=== PATIENT | female | born 1945 | race Caucasian/White ===

== ENCOUNTER 2020-07-20 10:57 | Emergency (ER) | payer MEDICARE, OTHER ==
[2020-07-20] MEDS ORDERED: NORMAL SALINE 1000 ML 1,000 ML IV ONE (11:39)
--- NOTE | 2020-07-20 11:40 | ER Document Report ---
ED Medical Screen (RME) - General Chief Complaint: Blood Pressure Problem Stated Complaint: BLOOD PRESSURE PROBLEMS Time Seen by Provider: 07/20/20 11:34 Primary Care Provider: ALEXIS YEUNG MD [Primary Care Provider] - Follow up as needed Notes: HPI: 75-year-old female presenting for low blood pressure and dizziness today. She states that she has been lightheaded for the last several days. Patient normally follows a [facility]. Patient had diarrhea in early mid June and her whole family was diagnosed Covid positive including herself. She still has some diarrhea no abdominal pain no fever. Has developed a slight cough no shortness of breath no chest pain. Patient is on 2 different blood pressure medications and has continued to take her medications at home despite being lightheaded she has been monitoring her pressures and they have been very low. She did take her blood pressure medications this morning. PHYSICAL EXAMINATION: Patient appears normotensive and is not significantly tachycardic at this time. Lung sounds are clear to auscultation I have greeted and performed a rapid initial assessment of this patient. A comprehensive ED assessment and evaluation of the patient, analysis of test results and completion of medical decision making process will be conducted by an additional ED providers. TRAVEL OUTSIDE OF THE [place] IN LAST 30 DAYS: No - Related Data Allergies/Adverse Reactions: Uhxuwcr-Sge-Fcu Reductase Inhibitor Adverse Reaction (Mild, Verified 07/20/20 11:33) MUSCLE CRAMP Past Medical History - Social History Chew tobacco use (# tins/day): No Frequency of alcohol use: None Drug Abuse: None - Past Medical History Cardiac Medical History: Reports: Hx Hypertension Denies: Hx Heart Attack Pulmonary Medical History: Denies: Hx Asthma Neurological Medical History: Denies: Hx Cerebrovascular Accident, Hx Seizures - ? MAYBE A TIA-NOT DIAGNOSED GI Medical History: Denies: Hx Hepatitis, Hx Hiatal Hernia, Hx Ulcer Infectious Medical History: Denies: Hx Hepatitis Past Surgical History: Denies: Hx Mastectomy, Hx Open Heart Surgery, Hx Pacemaker Physical Exam - Vital signs Vitals: Temp Pulse Resp BP Pulse Ox 97.9 F 83 15 126/61 H 96 07/20/20 11:05 07/20/20 11:05 07/20/20 11:05 07/20/20 11:05 07/20/20 11:05 Course - Vital Signs Vital signs: Temp Pulse Resp BP Pulse Ox 97.9 F 83 15 126/61 H 96 07/20/20 11:05 07/20/20 11:05 07/20/20 11:05 07/20/20 11:05 07/20/20 11:05 Doctor's Discharge - Discharge Referrals: ALEXIS YEUNG MD [Primary Care Provider] - Follow up as needed
[2020-07-20 12:46] LABS: ABSOLUTE BASOPHILS # (AUTO) 0.1 10^3/uL (0.0-0.2); ABSOLUTE EOSINOPHILS # (AUTO) 0.1 10^3/uL (0.0-0.6); ABSOLUTE LYMPHOCYTES (AUTO) 1.2 10^3/uL (0.5-4.7); ABSOLUTE MONOCYTES (AUTO) 0.7 10^3/uL (0.1-1.4); ABSOLUTE NEUT (AUTO) 5.6 10^3/uL (1.7-8.2); BASOPHILS % (AUTO) 0.8 % (0-2); EOSINOPHILS % (AUTO) 1.3 % (0-6); HEMOGLOBIN 11.5 g/dL (12.0-15.5); LYMPHOCYTES % (AUTO) 15.2 % (13-45); MEAN CORPUSCULAR HEMOGLOBIN 27.3 pg (27.0-33.4); MEAN CORPUSCULAR HGB CONC 32.9 g/dL (32.0-36.0); MEAN CORPUSCULAR VOLUME 83 fl (80-97); MONOCYTES % (AUTO) 9.1 % (3-13); PLATELET COUNT 263 10^3/uL (150-450); RED BLOOD COUNT 4.22 10^6/uL (3.72-5.28); RED CELL DISTRIBUTION WIDTH 14.7 % (11.5-14.0); SEGMENTED NEUTROPHILS % (AUTO) 73.6 % (42-78); TOTAL CELLS COUNTED % (AUTO) 100 %; WHITE BLOOD COUNT 7.6 10^3/uL (4.0-10.5)
--- NOTE | 2020-07-20 12:48 | RADIOLOGY REPORT (SQ) ---
EXAM DESCRIPTION: CHEST SINGLE VIEW IMAGES COMPLETED DATE/TIME: 07/20/2020 12:21 pm REASON FOR STUDY: cough covid + 07/09 COMPARISON: None. EXAM PARAMETERS: NUMBER OF VIEWS: One view. TECHNIQUE: Single frontal radiographic view of the chest acquired. RADIATION DOSE: NA LIMITATIONS: None. FINDINGS: LUNGS AND PLEURA: No opacities, masses or pneumothorax. No pleural effusion. MEDIASTINUM AND HILAR STRUCTURES: No masses. Contour normal. HEART AND VASCULAR STRUCTURES: Heart normal in size. Normal vasculature. BONES: No acute findings. HARDWARE: None in the chest. OTHER: No other significant finding. IMPRESSION: NO ACUTE RADIOGRAPHIC FINDING IN THE CHEST. TECHNICAL DOCUMENTATION: JOB ID: [id number] 2010 [employer]- All Rights Reserved Reading location - IP/workstation name: [email or web address]
[2020-07-20 13:06] LABS: ALBUMIN 4.1 g/dL (3.5-5.0); ALKALINE PHOSPHATASE 178 U/L (38-126); ANION GAP 9 (5-19); ASPARTATE AMINO TRANSFERASE 27 U/L (14-36); BILIRUBIN,DIRECT 0.2 mg/dL (0.0-0.4); BILIRUBIN,TOTAL 0.6 mg/dL (0.2-1.3); BLOOD UREA NITROGEN 49 mg/dL (7-20); CALCIUM 9.7 mg/dL (8.4-10.2); CARBON DIOXIDE 22 mmol/L (22-30); CHLORIDE 108 mmol/L (98-107); GLUCOSE 94 mg/dL (75-110); POTASSIUM 5.2 mmol/L (3.6-5.0); TOTAL PROTEIN 7.2 g/dL (6.3-8.2)
[2020-07-20] MEDS ORDERED: NORMAL SALINE 1000 ML 500 ML IV ONE (13:12)
--- NOTE | 2020-07-20 13:12 | ER Document Report ---
ED Blood Pressure Problem - General Chief Complaint: Blood Pressure Problem Stated Complaint: BLOOD PRESSURE PROBLEMS Time Seen by Provider: 07/20/20 11:34 Primary Care Provider: ALEXIS YEUNG MD [NO LOCAL MD] - Follow up as needed Notes: HPI: 75-year-old female with history as recorded on blood pressure medications as recorded presents today stating that she had some low blood pressure readings at home. Despite triage, she denies to me any and all lightheadedness, dizziness, chest pain, shortness of breath, fevers, vomiting, or diarrhea. She was diagnosed with coronavirus on the . Patient states she is just here secondary to the low blood pressure readings that she received at home. She has been taking her blood pressure medications as directed. ROS: See HPI All other review of systems reviewed and otherwise negative Reviewed vital signs and nursing note as charted by RN. PHYSICAL EXAM: CONSTITUTIONAL: Alert and oriented and responds appropriately to questions. Well-appearing; well-nourished HEAD: Normocephalic; atraumatic EYES: PERRL; Conjunctivae clear, sclerae non-icteric ENT: Normal nose; no rhinorrhea; moist mucous membranes; pharynx without lesions noted NECK: Supple without meningismus; non-tender; no cervical lymphadenopathy, no masses CARD: Regular rate and rhythm; no murmurs; symmetric distal pulses RESP: Normal chest excursion without splinting or tachypnea; breath sounds clear and equal bilaterally; no wheezes, no rhonchi, no rales ABD/GI: Normal bowel sounds; non-distended; soft, non-tender; no palpable organomegaly or masses BACK: The back appears normal and is non-tender to palpation EXT: Normal ROM in all joints; non-tender to palpation; no edema SKIN: No acute lesions noted NEURO: CN 2-12 intact; 5/5 bilateral upper and lower extremity strength with sensation intact to light touch; no nystagmus noted PSYCH: The patient's mood and manner are appropriate. Grooming and personal hygiene are appropriate. TRAVEL OUTSIDE OF THE [place] IN LAST 30 DAYS: No - Related Data Allergies/Adverse Reactions: Onqjxlk-Ucz-Obc Reductase Inhibitor Adverse Reaction (Mild, Verified 07/20/20 11:33) MUSCLE CRAMP Past Medical History - Social History Smoking Status: Never Smoker Chew tobacco use (# tins/day): No Frequency of alcohol use: None Drug Abuse: None Family History: Reviewed & Not Pertinent - Past Medical History Cardiac Medical History: Reports: Hx Hypertension Denies: Hx Heart Attack Pulmonary Medical History: Denies: Hx Asthma Neurological Medical History: Denies: Hx Cerebrovascular Accident, Hx Seizures - ? MAYBE A TIA-NOT DIAGNOSED GI Medical History: Denies: Hx Hepatitis, Hx Hiatal Hernia, Hx Ulcer Infectious Medical History: Denies: Hx Hepatitis Past Surgical History: Denies: Hx Mastectomy, Hx Open Heart Surgery, Hx Pacemake r Physical Exam - Vital signs Vitals: Temp Pulse Resp BP Pulse Ox 97.9 F 83 15 126/61 H 96 07/20/20 11:05 07/20/20 11:05 07/20/20 11:05 07/20/20 11:05 07/20/20 11:05 Course - Re-evaluation Re-evalutation: Given the above history and physical, with blood pressures as recorded here, we will obtain basic labs and electrolytes and provide a small amount of fluid and reassess. Patient denies to me any and all lightheadedness or dizziness. No chest pain, fevers, vomiting, or diarrhea. EKG shows a heart rate of 78, right bundle branch block, no obvious ST elevation or depression. 07/20/20 13:10 Orthostatic vital signs as recorded. Patient still denies any pain, lightheadedness or dizziness. Labs as recorded. I do not have a baseline but from the laboratory values it does appear that the patient has some dehydration. She has received a liter of fluid. No history of heart failure. She did just recover from coronavirus. I will provide another 500 cc of fluid. I had a discussion with the patient regarding holding one of the blood pressure medications and following up with primary care physician. We will also check the urine analysis to evaluate for possible infection. 07/20/20 18:00 Repeat chemistry looks improved. Patient understands to hydrate properly. Patient denies any lightheadedness or dizziness. Given the above history and physical I believe it is reasonable to discharge the patient home at this time w ith strict return precautions and follow-up with primary care physician. - Vital Signs Vital signs: Temp Pulse Resp BP Pulse Ox 97.9 F 78 18 128/71 H 98 07/20/20 11:05 07/20/20 12:31 07/20/20 14:01 07/20/20 14:00 07/20/20 14:01 - Laboratory Result Diagrams: 07/20/20 12:36 07/20/20 16:34 Laboratory results interpreted by me: 07/20/20 07/20/20 07/20/20 12:36 12:36 14:37 Hgb 11.5 L Hct 35.0 L RDW 14.7 H Potassium 5.2 H Chloride 108 H Carbon Dioxide BUN 49 H Creatinine 1.90 H Est GFR ( Amer) 31 L Est GFR (MDRD) Non-Af 26 L Alkaline Phosphatase 178 H Urine Ascorbic Acid 20 H 07/20/20 16:34 Hgb Hct RDW Potassium Chloride 111 H Carbon Dioxide 21 L BUN 41 H Creatinine 1.58 H Est GFR ( Amer) 39 L Est GFR (MDRD) Non-Af 32 L Alkaline Phosphatase Urine Ascorbic Acid Discharge - Discharge Clinical Impression: Dehydration Low blood pressure Qualifiers: Hypotension type: unspecified hypotension type Qualified Code(s): I95.9 - Hypotension, unspecified Condition: Good Disposition: HOME, SELF-CARE Additional Instructions: Please make sure that you stay well-hydrated as discussed. Come back immediately with any lightheadedness, dizziness, chest pain, fever, shortness of breath, or any other acute problems. Please make sure that you follow-up expeditiously with your primary care physician as discussed. Referrals: ALEXIS YEUNG MD [NO LOCAL MD] - Follow up as needed
[2020-07-20 15:05] LABS: APPEARANCE,URINE CLEAR; BILIRUBIN,URINE NEGATIVE (NEGATIVE); COLOR,URINE YELLOW; GLUCOSE, URINE NEGATIVE (NEGATIVE); KETONES,URINE NEGATIVE (NEGATIVE); LEUKOCYTE ESTERASE,URINE NEGATIVE (NEGATIVE); NITRITE,URINE NEGATIVE (NEGATIVE); PROTEIN,URINE NEGATIVE (NEGATIVE); URINE SPECIFIC GRAVITY 1.006; UROBILINOGEN,URINE NEGATIVE mg/dL (<2.0)
[2020-07-20 17:01] LABS: ANION GAP 9 (5-19); BLOOD UREA NITROGEN 41 mg/dL (7-20); CALCIUM 8.8 mg/dL (8.4-10.2); CARBON DIOXIDE 21 mmol/L (22-30); CHLORIDE 111 mmol/L (98-107); GLUCOSE 92 mg/dL (75-110); POTASSIUM 4.9 mmol/L (3.6-5.0)
[2020-07-20 18:59] VITALS: BP 149/79
--- NOTE | 2020-07-20 19:01 | EKG REPORT ---
SEVERITY:- ABNORMAL ECG - SINUS RHYTHM RIGHT BUNDLE BRANCH BLOCK : Confirmed by: Chantelle Banks MD 20-Jul-2020 19:00:07
== END 2020-07-20 19:11 | disposition home or self-care (01) ==
LOC: ER 10:57
DX: I95.9 Hypotension, unspecified (principal); E86.0 Dehydration; I10 Essential (primary) hypertension; Z79.899 Other long term (current) drug therapy; I45.10 Unspecified right bundle-branch block; Z86.19 Personal history of other infectious and parasitic diseases
CPT/HCPCS: 93005; 99285; 96360; 96361; 36415; 85025; 80053; 81001; 84484; 71045; 93010; J7030